=== PATIENT | male | born 2000 | race Caucasian/White ===

== ENCOUNTER 2020-10-01 00:31 | Emergency (ER) | payer OTHER ==
[~2020-10-01] VITALS: Ht 172.7 cm; Wt 59.0 kg
[2020-10-01 01:09] LABS: ABSOLUTE EOSINOPHILS 0.3 thou/uL (0.0-0.7); ABSOLUTE LYMPHOCYTES 4.1 thou/uL (0.8-5.3); ABSOLUTE MONOCYTES 0.5 thou/uL (0.0-1.2); ABSOLUTE NEUTROPHILS 4.4 thou/uL (1.6-8.1); BASOPHILS 0.5 %; EOSINOPHILS 2.9 %; HEMATOCRIT 46.5 % (42.0-52.0); HEMOGLOBIN 15.5 gm/dL (14.0-18.0); LYMPHOCYTES 44.1 %; MCH 29.4 pg (26.0-34.0); MCHC 33.2 g/dL (28.0-37.0); MCV 88.6 fL (80.0-100.0); MONOCYTES 5.1 %; MPV 9.6 fl. (7.2-11.1); NUCLEATED RBCS 0 /100WBC; PLATELET COUNT* 212 thou/uL (150-400); POLYS 47.4 %; RBC 5.25 mil/uL (4.50-6.00); RDW-CV 13.1 % (10.5-14.5); WBC 9.3 thou/uL (4.0-11.0)
[2020-10-01 01:26] LABS: CALCIUM 9.1 mg/dL (8.5-10.1); CREATININE 1.1 mg/dL (0.6-1.3)
[2020-10-01 01:29] LABS: URINE BILIRUBIN NEGATIVE (Negative); URINE BLOOD TRACE (Negative); URINE CLARITY CLEAR; URINE COLOR YELLOW; URINE GLUCOSE-RANDOM NEGATIVE (Negative); URINE KETONES NEGATIVE (Negative); URINE LEUKOCYTES-REFLEX NEGATIVE (Negative); URINE NITRITE-REFLEX NEGATIVE (Negative); URINE PROTEIN NEGATIVE (Negative); URINE SPECIFIC GRAVITY 1.025 (1.005-1.030); URINE UROBILINOGEN 0.2 E.U./dl (0.2-1.0)
[2020-10-01 01:31] LABS: ALBUMIN 4.7 g/dL (3.4-5.0); TOTAL BILIRUBIN 1.5 mg/dL (<0.1-1.0); TOTAL PROTEIN 7.9 g/dL (6.4-8.2)
[2020-10-01 01:34] LABS: AMP/METHAMP Negative (Negative); BARBITURATES Negative (Negative); BENZODIAZEPINES Negative (Negative); COCAINE Negative (Negative); METHADONE Negative (Negative); OPIATES Negative (Negative); PCP Negative (Negative); THC Negative (Negative)
[2020-10-01] MEDS ORDERED: CARAFATE 1 GM TA1 GM PO (01:54)
[2020-10-01 01:59] VITALS: BP 132/80
== END 2020-10-01 02:01 | disposition home or self-care (01) ==
LOC: M.ERS 00:31
PROVIDERS: Emergency Medicine
DX: R10.13 Epigastric pain (principal); Z88.0 Allergy status to penicillin